=== PATIENT | female | born 1975 | race Caucasian/White ===

== ENCOUNTER 2021-06-07 15:04 | Emergency (ER) | payer OTHER ==
[~2021-06-07] VITALS: Ht 170.2 cm; Wt 42.6 kg
[2021-06-07 16:00] LABS: BASOPHILS ABSOLUTE AUTO 0.05 K/mm3 (0.00-0.23); BASOPHILS PERCENT AUTO 0 % (0-2); EOSINOPHILS ABSOLUTE AUTO 0.04 K/mm3 (0.00-0.68); EOSINOPHILS PERCENT AUTO 0 % (0-6); Hematocrit 45.2 % (33.0-51.0); Hemoglobin 15.2 g/dL (11.5-16.0); IMMATURE GRAN ABSOLUTE AUTO 0.04 K/mm3 (0.00-0.10); IMMATURE GRAN PERCENT AUTO 0 % (0-1); LYMPHOCYTES PERCENT AUTO 9 % (21-46); MONOCYTES ABSOLUTE AUTO 0.25 K/mm3 (0.16-1.47); MONOCYTES PERCENT AUTO 2 % (4-13); Mean Corpuscular HGB 32.6 pg (26.0-34.0); Mean Corpuscular HGB Conc 33.6 g/dL (31.5-36.5); Mean Corpuscular Volume 97 fL (80-100); Mean Platelet Volume 10.8 fL (9.1-12.4); NEUTROPHILS ABSOLUTE AUTO 9.98 K/mm3 (1.96-9.15); NEUTROPHILS PERCENT AUTO 88 % (41-73); Platelet Count 330 K/mm3 (150-400); RDW Coefficient Variation 12.7 % (11.7-14.2); RDW Standard Deviation 45.5 fL (35.1-46.3); Red Blood Cell Count 4.66 M/mm3 (3.80-5.20); White Blood Cell Count 11.36 K/mm3 (4.00-11.30)
[2021-06-07 16:15] LABS: Alanine Aminotransfer (ALT/SGP 19 U/L (12-78); Albumin, Blood 3.9 g/dL (3.4-5.0); Albumin/Globulin Ratio 1.1 (0.8-1.8); Alk Phos 93 U/L (50-136); Anion Gap 6 mmol/L (6-16); Aspartate Aminotrans (AST/SGOT 12 U/L (12-37); Bilirubin, Total 0.5 mg/dL (0.1-1.0); Blood Urea Nitrogen 5 mg/dL (8-24); Bun/Creatinine Ratio 8.4 (12.0-20.0); CO2, Blood 27 mmol/L (21-32); Calcium, Blood 9.2 mg/dL (8.5-10.1); Chloride, Blood 105 mmol/L (98-108); Globulin, Blood 3.4 g/dL (2.2-4.0); Glomerular Filtration Rate >60 (60-); Glucose, Blood 135 mg/dL (70-99); Potassium, Blood 4.3 mmol/L (3.5-5.5); Sodium, Blood 138 mmol/L (136-145); Total Protein, Blood 7.3 g/dL (6.4-8.2); Troponin I <0.015 ng/mL (0.000-0.040)
== END 2021-06-07 17:56 | disposition home or self-care (01) ==
LOC: EDBD 15:04 → ER 15:04
PROVIDERS: Physician Assistant
DX: K31.84 Gastroparesis (principal); F17.200 Nicotine dependence, unspecified, uncomplicated; Z88.8 Allergy status to other drugs, medicaments and biological substances; Z88.6 Allergy status to analgesic agent
CPT/HCPCS: 71045; 74177; 80053; 83690; 84484; 85025; 93005; 93010; 96374; 96375; 96376; 99284-25; J2270; J2550; J2765; J7030; Q9967

== ENCOUNTER 2022-08-08 15:27 | Emergency (ER) | payer OTHER ==
[~2022-08-08] VITALS: Ht 170.2 cm; Wt 54.4 kg
[2022-08-08] MEDS ORDERED: TRAZ50 PO (19:01)
[2022-08-08] MEDS ORDERED: Cyclobenzaprine5 MG PO (19:01)
[2022-08-08] MEDS ORDERED: LORA.5 (19:01)
[2022-08-08] MEDS ORDERED: GABA100 (19:01)
[2022-08-08] MEDS ORDERED: SUCR1 (19:02)
[2022-08-08] MEDS ORDERED: Norco 5-325 Ta1 EACH PO (19:46)
== END 2022-08-08 19:50 | disposition home or self-care (01) ==
LOC: ER 15:27
DX: M54.42 Lumbago with sciatica, left side (principal); M54.41 Lumbago with sciatica, right side; F17.200 Nicotine dependence, unspecified, uncomplicated; Z88.6 Allergy status to analgesic agent; Z88.8 Allergy status to other drugs, medicaments and biological substances; Z79.899 Other long term (current) drug therapy; M25.9 Joint disorder, unspecified
CPT/HCPCS: A9270

== ENCOUNTER 2024-11-12 09:20 | Emergency (ER) | payer OTHER ==
[~2024-11-12] VITALS: Ht 170.2 cm; Wt 68.0 kg
[~2024-11-12 09:20] MED LIST: ACET500 PO; Cyclobenzaprine5 MG PO; GABA100; LIDO700A20 TOP; LORA.5; Norco 5-325 Ta1 EACH PO; SUCR1; TRAZ50 PO
[2024-11-12] MEDS ORDERED: LORAZEPAM0.5 MG PO (10:15)
[2024-11-12] MEDS ORDERED: BUSPIRONE HCL5 M6 PO (10:15)
[2024-11-12] MEDS ORDERED: PROAIR DIGIHAL90 MCG (10:15)
[2024-11-12] MEDS ORDERED: DOXE10 PO (10:15)
[2024-11-12] MEDS ORDERED: Norethindrone Ac5 MG PO (10:16)
[2024-11-12] MEDS ORDERED: Lyrica300 MG PO (10:16)
[2024-11-12] MEDS ORDERED: BUPROPION XL150 M1 PO (10:16)
[2024-11-12] MEDS ORDERED: IMITREX50 M2 (10:16)
[2024-11-12] MEDS ORDERED: CITALOPRAM HBR20 M9 PO (10:16)
[2024-11-12] MEDS ORDERED: METO5A (10:17)
[2024-11-12] MEDS ORDERED: ONDA4ODT MM (10:17)
[2024-11-12] MEDS ORDERED: Ipratropium/Albuterol SulF 2.5-0.5MG/3 ML Amp INH ONE (10:45)
[2024-11-12 10:49] LABS: BASOPHILS ABSOLUTE AUTO 0.11 K/mm3 (0.00-0.23); BASOPHILS PERCENT AUTO 1 % (0-2); EOSINOPHILS ABSOLUTE AUTO 0.41 K/mm3 (0.00-0.68); EOSINOPHILS PERCENT AUTO 4 % (0-6); Hemoglobin 15.1 g/dL (11.5-16.0); IMMATURE GRAN ABSOLUTE AUTO 0.03 K/mm3 (0.00-0.10); IMMATURE GRAN PERCENT AUTO 0 % (0-1); LYMPHOCYTES ABSOLUTE AUTO 1.86 K/mm3 (0.84-5.20); LYMPHOCYTES PERCENT AUTO 20 % (21-46); MONOCYTES ABSOLUTE AUTO 0.68 K/mm3 (0.16-1.47); MONOCYTES PERCENT AUTO 7 % (4-13); Mean Corpuscular HGB 31.2 pg (26.0-34.0); Mean Corpuscular HGB Conc 34.3 g/dL (31.5-36.5); Mean Corpuscular Volume 91 fL (80-100); Mean Platelet Volume 11.2 fL (9.1-12.4); NEUTROPHILS ABSOLUTE AUTO 6.47 K/mm3 (1.96-9.15); NEUTROPHILS PERCENT AUTO 68 % (41-73); Platelet Count 253 K/mm3 (150-400); RDW Coefficient Variation 13.3 % (11.7-14.2); RDW Standard Deviation 44.7 fL (35.1-46.3); Red Blood Cell Count 4.84 M/mm3 (3.80-5.20); White Blood Cell Count 9.56 K/mm3 (4.00-11.30)
[2024-11-12 10:54] LABS: Alanine Aminotransfer (ALT/SGP 25 U/L (12-78); Albumin, Blood 3.6 g/dL (3.4-5.0); Alk Phos 69 U/L (50-136); Anion Gap 13 mmol/L (3-11); Aspartate Aminotrans (AST/SGOT 26 U/L (12-37); Beta HCG, Quantitative, Serum <1 mIU/mL (0-3); Bilirubin, Total 0.4 mg/dL (0.1-1.0); Blood Urea Nitrogen 6 mg/dL (8-24); Bun/Creatinine Ratio 6.8 (12.0-20.0); CO2, Blood 19 mmol/L (21-32); Calcium, Blood 8.4 mg/dL (8.5-10.1); Chloride, Blood 107 mmol/L (98-108); Creatinine, Blood 0.88 mg/dL (0.40-1.00); Globulin, Blood 3.6 g/dL (2.2-4.0); Glomerular Filtration Rate 81 (60-); Glucose, Blood 153 mg/dL (70-99); Magnesium, Blood 1.9 mg/dL (1.6-2.4); Phosphorus, Blood 2.2 mg/dL (2.5-4.9); Potassium, Blood 3.6 mmol/L (3.5-5.5); Sodium, Blood 135 mmol/L (136-145); Total Protein, Blood 7.2 g/dL (6.4-8.2)
[2024-11-12] MEDS ORDERED: MethylPREDNISolone Sod Succ 125 MG Vial IV ONE (11:15)
[2024-11-12] MEDS ORDERED: PRED20 PO (11:48)
[2024-11-12] MEDS ORDERED: ALBU90OI INH (11:48)
[2024-11-12 12:05] VITALS: BP 97/83
== END 2024-11-12 12:12 | disposition home or self-care (01) ==
LOC: ER 09:20
PROVIDERS: Student in an Organized Health Care Education/Training Program
DX: J45.901 Unspecified asthma with (acute) exacerbation (principal); F17.200 Nicotine dependence, unspecified, uncomplicated; Z88.8 Allergy status to other drugs, medicaments and biological substances; Z79.899 Other long term (current) drug therapy
CPT/HCPCS: 71046; 80053; 83735; 84100; 84484; 84702; 85025; 93005; 93010; 94640; 94664; 96374; 99285-25; J2919

== ENCOUNTER 2025-07-12 18:49 | Inpatient (IN) | payer OTHER ==
[~2025-07-12] VITALS: Ht 170.2 cm; Wt 68.5 kg
[~2025-07-12 18:49] MED LIST changes: +ALBU90OI INH; +BUPROPION XL150 M1 PO; +BUSPIRONE HCL5 M6 PO; +CITALOPRAM HBR20 M9 PO; +DOXE10 PO; +IMITREX50 M2; +LORAZEPAM0.5 MG PO; +Lyrica300 MG PO; +METO5A; +Norethindrone Ac5 MG PO; +ONDA4ODT MM; +PRED20 PO; +PROAIR DIGIHAL90 MCG; -SUCR1; +SUCR1 PO
[2025-07-12 19:07] LABS: Hematocrit 42.2 % (33.0-51.0); Hemoglobin 14.3 g/dL (11.5-16.0); Mean Corpuscular HGB Conc 33.9 g/dL (31.5-36.5); Mean Corpuscular Volume 94 fL (80-100); Platelet Count 192 K/mm3 (150-400); RDW Coefficient Variation 14.6 % (11.7-14.2); RDW Standard Deviation 51.0 fL (35.1-46.3)
[2025-07-12 19:08] LABS: NRBC ABSOLUTE 0.00 K/mm3 (0.00-0.02); NRBC Auto 0.0 /100 WBC (0.0-0.2)
[2025-07-12] MEDS ORDERED: Ipratropium/Albuterol SulF 2.5-0.5MG/3 ML Amp INH STA (19:11)
[2025-07-12 19:26] LABS: BASOPHILS ABSOLUTE MAN 0.00 K/mm3 (0.00-0.23); BASOPHILS PERCENT MAN 0 % (0-2); EOSINOPHILS ABSOLUTE MAN 0.38 K/mm3 (0.00-0.68); EOSINOPHILS PERCENT MAN 3 % (0-6); LYMPHOCYTES ABSOLUTE MAN 2.20 K/mm3 (0.84-5.20); LYMPHOCYTES PERCENT MAN 17 % (21-46); MONOCYTES ABSOLUTE MAN 0.38 K/mm3 (0.16-1.47); MONOCYTES PERCENT MAN 3 % (4-13); NEUTROPHILS ABSOLUTE MAN 9.98 K/mm3 (1.96-9.15); SEG NEUTROPHILS PERCENT MAN 77 % (41-73)
[2025-07-12 19:30] LABS: Alanine Aminotransfer (ALT/SGP 19.0 U/L (12-78); Albumin, Blood 3.5 g/dL (3.4-5.0); Albumin/Globulin Ratio 1.1 (0.8-1.8); Anion Gap 8.0 mmol/L (3-11); Aspartate Aminotrans (AST/SGOT 15.0 U/L (12-37); Bilirubin, Total 0.3 mg/dL (0.1-1.0); Blood Urea Nitrogen 5.0 mg/dL (8-24); CO2, Blood 26.0 mmol/L (21-32); Calcium, Blood 8.1 mg/dL (8.5-10.1); Chloride, Blood 106.0 mmol/L (98-108); Creatinine, Blood 0.8 mg/dL (0.40-1.00); Globulin, Blood 3.3 g/dL (2.2-4.0); Glucose, Blood 121.0 mg/dL (70-99); Potassium, Blood 3.4 mmol/L (3.5-5.5); Sodium, Blood 137.0 mmol/L (136-145); Total Protein, Blood 6.8 g/dL (6.4-8.2)
[2025-07-12] MEDS ORDERED: OXYC5 PO (20:34)
[2025-07-12] MEDS ORDERED: Ipratropium/Albuterol SulF 2.5-0.5MG/3 ML Amp INH SCH (22:15)
[2025-07-12] MEDS ORDERED: FLU VACC TS2025-26(6MOS UP)/PF 45 MCG/0.5 ML SYRINGE IM SCH (22:20)
[2025-07-12 22:34] LABS: Magnesium, Blood 1.7 mg/dL (1.6-2.4)
[2025-07-12 23:03] LABS: Influenza A, PCR NEGATIVE (NEGATIVE); Influenza B, PCR NEGATIVE (NEGATIVE); Resp Syncytial Virus, PCR NEGATIVE (NEGATIVE); SARS-Cov-2 (COVID-19) PCR, MMC NEGATIVE (NEGATIVE)
[2025-07-12] MEDS ORDERED: Ipratropium/Albuterol SulF 2.5-0.5MG/3 ML Amp ONE (23:28)
[2025-07-13 01:04] VITALS: BP 129/76
[2025-07-13] MEDS ORDERED: Mag Sulfate 1 GM/D5% 100ML 100 ML IV STA (01:57)
[2025-07-13] MEDS ORDERED: NS 250 ML IV PRN (02:10)
[2025-07-13] MEDS ORDERED: Albuterol 2.5 MG/3 ML VIAL INH PRN (02:50)
[2025-07-13] MEDS ORDERED: Ipratropium/Albuterol SulF 2.5-0.5MG/3 ML Amp INH SCH (03:00)
--- NOTE | 2025-07-13 03:09 | NUR ---
ADMIT NOTE PT ADMITTED FROM ED FOR ACUTE RESP FAILURE WITH HYPOXIA. A&OX4, VSS. ABLE TO EXPRESS NEEDS EFFECTIVELY. ORIENTED TO CALL LIGHT, ROOM, SAFETY/FALL PRECAUTIONS. ARRIVED TO ROOM W/ 4L NC. REMAINS ON 4L. PT DID REQUEST BREATHING TREATMENT. RT NOTIFIED, UP TO SEE PT, AND RT OBTAINED ORDER FOR ADDITIONAL BREATHING TREATMENT. PT ON TELE. ST AT 111. PT DID REQUEST MEDICATION FOR BACK PAIN AND ANXIETY ON ARRIVAL TO UNIT. DR. MÁRQUEZ NOTIFIED AND ORDER FOR ATIVAN AND OXYCODONE OBTAINED/ADMINISTERED. IV NOTED TO BE INFILTRATED. IV REMOVED AND REPLACED. BED RAILS UP X 2, BED IN LOWEST POSITION, BED WHEELS LOCKED, PERSONAL BELONGINGS AND CALL LIGHT WITHIN REACH FOR SAFETY.
[2025-07-13 05:04] LABS: BASOPHILS ABSOLUTE AUTO 0.02 K/mm3 (0.00-0.23); BASOPHILS PERCENT AUTO 0 % (0-2); EOSINOPHILS ABSOLUTE AUTO 0.02 K/mm3 (0.00-0.68); EOSINOPHILS PERCENT AUTO 0 % (0-6); Hematocrit 39.6 % (33.0-51.0); Hemoglobin 13.6 g/dL (11.5-16.0); IMMATURE GRAN ABSOLUTE AUTO 0.02 K/mm3 (0.00-0.10); IMMATURE GRAN PERCENT AUTO 0 % (0-1); LYMPHOCYTES ABSOLUTE AUTO 0.53 K/mm3 (0.84-5.20); LYMPHOCYTES PERCENT AUTO 8 % (21-46); MONOCYTES ABSOLUTE AUTO 0.04 K/mm3 (0.16-1.47); MONOCYTES PERCENT AUTO 1 % (4-13); Mean Corpuscular HGB Conc 34.3 g/dL (31.5-36.5); Mean Corpuscular Volume 93 fL (80-100); NEUTROPHILS ABSOLUTE AUTO 6.13 K/mm3 (1.96-9.15); NEUTROPHILS PERCENT AUTO 91 % (41-73); NRBC ABSOLUTE 0.00 K/mm3 (0.00-0.02); NRBC Auto 0.0 /100 WBC (0.0-0.2); Platelet Count 186 K/mm3 (150-400); RDW Coefficient Variation 14.6 % (11.7-14.2); RDW Standard Deviation 50.4 fL (35.1-46.3)
[2025-07-13 05:31] LABS: Alanine Aminotransfer (ALT/SGP 16.0 U/L (12-78); Albumin, Blood 3.4 g/dL (3.4-5.0); Albumin/Globulin Ratio 1.1 (0.8-1.8); Anion Gap 10.0 mmol/L (3-11); Aspartate Aminotrans (AST/SGOT 11.0 U/L (12-37); Bilirubin, Total 0.3 mg/dL (0.1-1.0); Blood Urea Nitrogen 6.0 mg/dL (8-24); CO2, Blood 24.0 mmol/L (21-32); Calcium, Blood 8.8 mg/dL (8.5-10.1); Chloride, Blood 106.0 mmol/L (98-108); Creatinine, Blood 0.67 mg/dL (0.40-1.00); Globulin, Blood 3.0 g/dL (2.2-4.0); Glucose, Blood 235.0 mg/dL (70-99); Magnesium, Blood 2.6 mg/dL (1.6-2.4); Potassium, Blood 3.5 mmol/L (3.5-5.5); Sodium, Blood 136.0 mmol/L (136-145); Total Protein, Blood 6.4 g/dL (6.4-8.2)
[2025-07-13 05:33] VITALS: BP 115/84
--- NOTE | 2025-07-13 05:53 | NUR ---
CASHIER HOST/HOSTESS SUMMARY NO ACUTE CHANGES SINCE ADMISSION TO UNIT. PT A&OX4, VSS. ABLE TO EXPRESS NEEDS EFFECTIVELY. HAS BEEN ASLEEP FOR MOST OF THE SHIFT SINCE ADMISSION ONTO UNIT. CHEST RISE/RESPIRATIONS NOTED. REMAINS ON CONT PULSE OX AND 4L NC W/ O2 SATS >=92%. ON TELE. ST AT 111. OXYCODONE ADMIN X 1 W/ GOOD EFFECT. BED RAILS UP X 2, BED IN LOWEST POSITION, BED WHEELS LOCKED, PERSONAL BELONGINGS AND CALL LIGHT WITHIN REACH FOR SAFETY.
[2025-07-13 08:25] VITALS: BP 108/77
[2025-07-13] MEDS ORDERED: Enoxaparin 40 MG/0.4 ML SYR SC SCH (09:00)
[2025-07-13 11:52] VITALS: BP 109/73
[2025-07-13 16:01] VITALS: BP 106/76
--- NOTE | 2025-07-13 16:55 | NUR ---
End of shift summary: Patient is alert and oriented x4; pleasant and cooperative with care. Patient with continuous O2 monitor with O2 at 2L via NC and saturation >92%. Patient is independent in room and will call appropriately if assistance needed. Patient with increased diaphoresis throughout the day at times and multiple need for Tele patch replacements. Patient denies CP or pressure, SOB with exertion voiced and noted, N/V/D and pain medicated per EMAR with good relief noted. All medications administered per EMAR. Bed in lowest position and call light within reach. Will continue to monitor until next shift nurse arrives and report is given. Plan to possibly discharge home in am.
[2025-07-13 22:54] VITALS: BP 134/74
[2025-07-14 00:43] VITALS: BP 123/80
[2025-07-14 05:00] VITALS: BP 96/62
[2025-07-14 05:41] LABS: Anion Gap 7.0 mmol/L (3-11); Blood Urea Nitrogen 10.0 mg/dL (8-24); CO2, Blood 27.0 mmol/L (21-32); Calcium, Blood 9.0 mg/dL (8.5-10.1); Chloride, Blood 108.0 mmol/L (98-108); Creatinine, Blood 0.74 mg/dL (0.40-1.00); Glucose, Blood 181.0 mg/dL (70-99); Magnesium, Blood 2.3 mg/dL (1.6-2.4); Potassium, Blood 4.5 mmol/L (3.5-5.5); Sodium, Blood 137.0 mmol/L (136-145)
--- NOTE | 2025-07-14 06:27 | NUR ---
TOPSTITCHER LOCKSTITCH SUMMARY PT A&OX4, VSS. ABLE TO COMMUNICATE NEEDS APPROPRIATELY. PT HAS BEEN SLEEPING FOR MOST OF THE SHIFT. CHEST RISE/RESPIRATIONS NOTED. OXYCODONE ADMIN X 2 FOR BACK PAIN THIS SHIFT W/ GOOD EFFECT. REMAINS ON TELE. ST AT 109 W/ PVCS. BED RAILS UP X 2, BED IN LOWEST POSITION, BED WHEELS LOCKED, PERSONAL BELONGINGS AND CALL LIGHT WITHIN REACH FOR SAFETY.
[2025-07-14 08:04] VITALS: BP 111/72
[2025-07-14 11:24] VITALS: BP 110/74
[2025-07-14] MEDS ORDERED: Nicoderm Cq1 EAC1 TOP (11:29)
[2025-07-14] MEDS ORDERED: ALBU90OI INH (11:30)
[2025-07-14] MEDS ORDERED: OMEP20ER PO (11:31)
[2025-07-14] MEDS ORDERED: STIOLTO RESPIMAT4 G1 INH (11:33)
--- NOTE | 2025-07-14 12:16 | NUR ---
DISCHARGE PT DISCHARGED HOME WITH FAMILY. IV REMOVED, EDUCATION PROVIDED, ALL BELONGINGS WITH PT.
== END 2025-07-14 11:54 | disposition home or self-care (01) | DRG 189 ==
LOC: ER 18:49 → MEDS 18:50 → ERHOLD 18:50 → MEDS 07-13 01:05 → ENPENDDIS 07-14 10:41 → MEDS 07-14 11:54
PROVIDERS: Emergency Medicine; Internal Medicine; ADMIT Student in an Organized Health Care Education/Training Program
DX: J96.01 Acute respiratory failure with hypoxia (principal); J44.1 Chronic obstructive pulmonary disease with (acute) exacerbation; M54.50 Low back pain, unspecified; G89.29 Other chronic pain; F17.210 Nicotine dependence, cigarettes, uncomplicated; J96.02 Acute respiratory failure with hypercapnia; I49.3 Ventricular premature depolarization; I45.81 Long QT syndrome; E87.6 Hypokalemia; Z98.1 Arthrodesis status; Z88.8 Allergy status to other drugs, medicaments and biological substances; Z79.899 Other long term (current) drug therapy; Z79.51 Long term (current) use of inhaled steroids; Z79.52 Long term (current) use of systemic steroids; Z87.19 Personal history of other diseases of the digestive system; Z23 Encounter for immunization
CPT/HCPCS: 36415; 71045; 80048; 80053; 83735; 84443; 85025; 87637; 93005; 93010; 94640; 94664; 94762; 96372; 96374; 96376; 99285-25; A9270; G0378; J1650; J2919; J3475; J7050

== ENCOUNTER → 2025-07-26 | Outpatient (CLI) | payer OTHER ==
[~2025-07-26] MED LIST changes: +Nicoderm Cq1 EAC1 TOP; +OMEP20ER PO; +OXYC5 PO; +STIOLTO RESPIMAT4 G1 INH
== END | disposition home or self-care (01) ==
LOC: LAB SHORT 17:12 → LAB 17:12
PROVIDERS: Physician Assistant
DX: N93.9 Abnormal uterine and vaginal bleeding, unspecified (principal)
CPT/HCPCS: 87624; G0145

== ENCOUNTER 2025-08-14 06:02 | Emergency (ER) | payer OTHER ==
[~2025-08-14] VITALS: Ht 170.2 cm; Wt 68.0 kg
[2025-08-14] MEDS ORDERED: IPRAT-ALBUT 0.5-3 ML IH (06:19)
[2025-08-14] MEDS ORDERED: NS 1,000 ML IV SCH (06:25)
[2025-08-14] MEDS ORDERED: Albuterol 2.5 MG/3 ML VIAL INH SCH (06:25)
[2025-08-14 06:38] LABS: BASOPHILS ABSOLUTE AUTO 0.18 K/mm3 (0.00-0.23); BASOPHILS PERCENT AUTO 1 % (0-2); EOSINOPHILS ABSOLUTE AUTO 0.05 K/mm3 (0.00-0.68); EOSINOPHILS PERCENT AUTO 0 % (0-6); Hematocrit 44.1 % (33.0-51.0); Hemoglobin 14.7 g/dL (11.5-16.0); IMMATURE GRAN ABSOLUTE AUTO 0.11 K/mm3 (0.00-0.10); IMMATURE GRAN PERCENT AUTO 1 % (0-1); LYMPHOCYTES ABSOLUTE AUTO 0.73 K/mm3 (0.84-5.20); LYMPHOCYTES PERCENT AUTO 4 % (21-46); MONOCYTES ABSOLUTE AUTO 1.26 K/mm3 (0.16-1.47); MONOCYTES PERCENT AUTO 6 % (4-13); Mean Corpuscular HGB Conc 33.3 g/dL (31.5-36.5); Mean Corpuscular Volume 93 fL (80-100); NEUTROPHILS ABSOLUTE AUTO 17.59 K/mm3 (1.96-9.15); NEUTROPHILS PERCENT AUTO 88 % (41-73); NRBC ABSOLUTE 0.00 K/mm3 (0.00-0.02); NRBC Auto 0.0 /100 WBC (0.0-0.2); Platelet Count 277 K/mm3 (150-400); RDW Coefficient Variation 13.8 % (11.7-14.2); RDW Standard Deviation 48.0 fL (35.1-46.3)
[2025-08-14 07:05] LABS: Alanine Aminotransfer (ALT/SGP 23.0 U/L (12-78); Albumin, Blood 2.9 g/dL (3.4-5.0); Albumin/Globulin Ratio 0.6 (0.8-1.8); Anion Gap 11.0 mmol/L (3-11); Aspartate Aminotrans (AST/SGOT 16.0 U/L (12-37); Bilirubin, Total 0.4 mg/dL (0.1-1.0); Blood Urea Nitrogen 8.0 mg/dL (8-24); CO2, Blood 25.0 mmol/L (21-32); Calcium, Blood 9.2 mg/dL (8.5-10.1); Chloride, Blood 103.0 mmol/L (98-108); Creatinine, Blood 0.67 mg/dL (0.40-1.00); Globulin, Blood 5.0 g/dL (2.2-4.0); Glucose, Blood 115.0 mg/dL (70-99); Potassium, Blood 3.6 mmol/L (3.5-5.5); Sodium, Blood 135.0 mmol/L (136-145); Total Protein, Blood 7.9 g/dL (6.4-8.2)
[2025-08-14 08:02] VITALS: BP 115/72
[2025-08-14] MEDS ORDERED: CefTRIAXone Sodium 2,000 MG in NS 100 ML IV ONE (08:30)
[2025-08-14] MEDS ORDERED: Albuterol HFA200 ACT/6.7 GM INH INH PRN (10:00)
[2025-08-14] MEDS ORDERED: DELTASONE20 MG PO (10:03)
[2025-08-14] MEDS ORDERED: DOXY100 PO (10:03)
[2025-08-14] MEDS ORDERED: ALBU90OI INH (10:04)
== END 2025-08-14 10:27 | disposition home or self-care (01) ==
LOC: ER 06:02
PROVIDERS: Emergency Medicine
DX: J96.91 Respiratory failure, unspecified with hypoxia (principal); J44.1 Chronic obstructive pulmonary disease with (acute) exacerbation; J44.0 Chronic obstructive pulmonary disease with (acute) lower respiratory infection; J18.9 Pneumonia, unspecified organism; F17.200 Nicotine dependence, unspecified, uncomplicated; Z88.8 Allergy status to other drugs, medicaments and biological substances; Z79.899 Other long term (current) drug therapy
CPT/HCPCS: 71045; 71260; 80053; 84484; 85025; 85379; 93005; 93010; 96361; 96365-59; 99285-25; A9270; J0696; J2919; J7030; Q9967